=== PATIENT | male | born 1950 | race Caucasian/White ===

== ENCOUNTER 2019-03-30 10:28 | Outpatient (CLI) | payer MEDICARE, OTHER ==
[2019-03-30 15:34] VITALS: BP 143/89
--- NOTE | 2019-03-30 15:34 | SLEEP CARE CONSULTATION ---
Information from patient questionnaire entered by Elaine Fung. I have reviewed and concur with the information entered by Elaine Fung. This document represents the service I personally performed and the decisions made by me, Jon Mena MD, [facility]. History of Present Illness Reason for Visit: New patient Chief Complaint: reports: Unrefreshed sleep, Excessive daytime sleepiness, Fatigue, Frequent awakenings at night Duration of Symptoms: 6 months Usual bedtime: 11 pm Time it takes to fall asleep: 5-10 mins Snores at night: Yes Observed to quit breathing while asleep: No Sleeps alone due to snoring: Yes Number of times waking at night: 3-4 Reasons for waking at night: reports: Bathroom, Other (heartburn) Toss, Turn, or Twitch while sleeping: No Recalls having dreams: Yes Usually gets out of bed at: 4-5 am Feels refreshed in the morning: No Morning headache: No Sleepy or fatigued during the day: Yes Ever fallen asleep while driving: No Takes day naps: No Prior sleep studies: No Additional HPI information: I had the pleasure of seeing Mr. Davenport today regarding the possibility of him having a sleep disorder. As you know, he is a 68 year old gentleman who complains of persistent fatigue and excessive daytime sleepiness for the past 6 months. When he was hospitalized recently, it was noted that his oxygen saturation fell to an abnormally low level at night. The patient tells me that he normally goes to bed around 11 pm, and it takes him approximately 5 - 10 minutes to fall asleep. He has been told that he snores loudly and irregularly at night. He has never been observed to stop breathing in his sleep. His has to sleep in a separate room. He can recall waking up on the average of 3 - 4 times during the night. Most of the time he wakes up because of heart burn. He has awakened occasionally because of his own snoring, choking, and having to gasp for air. There is not a lot of tossing and turning in his sleep. No somniloquy (sleep talking) or somnambulism (sleep walking). Generally he can recall having dreams. In the morning he usually gets up out of the bed around 4 - 8 a.m. not feeling refreshed nor rested. He usually does not have a morning headache. During the day he complains of feeling sleepy and fatigued. His score on [place] Sleepiness Scale is 10 out of 24. He has never fallen asleep while driving nor has had any accident due to sleepiness. He usually does not take naps during the day. Upon falling asleep during the day he denies having vivid dreams. He has never had sleep paralysis, experienced cataplexy or symptoms of restless leg syndrome. He denies having impaired concentration during the day. - Parasomnia Symptoms Ever been unable to move upon waking from sleep: No Ever felt weak in the knees when startled or emotional: No Bothered by creepy, crawly, restless sensations in legs: No Problems with memory or concentration: No Subjective Initial [place] Sleepiness Scale score: 10 Past Medical History Past Medical History: reports: Hypertension, Arthritis, GERD, Other (supraventricular tachycardia, coronary artery disease, [place], stent placement) Social History The patient's occupation is a Retired. Patient is and lives in [place]. Have you smoked in the past 12 months: No Alcohol use: Yes Alcohol amount and frequency: 1 beer a week Family History Family history of sleep disordered breathing: No Allergies and Home Medications Drug allergies reviewed: Yes (NKDA) Home medication list reviewed: Yes (omeprazole, sucralfate, aspirin, metoprolol, a statin) Review of Systems Weight gain over past 5 years: 20 Weight loss over past 5 years: 15 Cardiovascular: reports: high blood pressure, leg or foot swelling Respiratory: reports: shortness of breath Gastrointestinal: reports: heartburn Urinary: denies: incontinence, frequency, urgency, impotence, other Neurological: denies: headaches, seizure, head trauma, disorientation, speech dysfunction, gait or balance problems, fainting or unconsciousness, other Psychiatric: denies: Attention Deficit Hyperactivity, anxiety, depression, mood disorder, claustrophobia, other Ear/Nose/Throat: denies: nasal congestion, sinus problems, nose bleeds, dry mouth/throat, hoarseness, injury to nose, tonsillectomy, wisdom teeth removed, other Endocrine: denies: thyroid disease, history of goiter, sluggishness, too hot or cold, excessive thirst, increased appetite, increased urination, unexplained weakness, other Musculoskeletal: reports: joint pain Immunologic: denies: sneezing, rash, itching, allergies to food or environment, other Physical Exam Vital signs obtained and entered by: Dr. Mena Blood Pressure: 143/89 Cuff size: regular Heart Rate: 59 O2 Saturation: 94 Height: 6 ft Weight: 215 lb Body Mass Index: 29.1 BMI Classification: Overweight Neck circumference: 16 Mood/affect: normal HEENT: No craniofacial malformation Nostrils: patent to airflow Turbinates: normal Septum: midline Mouth and throat: narrow oropharynx Soft palate: long Hard palate: normal Uvula: normal Uvula visualization: 50% Mallampati Class II Tongue: normal in size Tonsils: absent bilaterally Chin and jaw: normal size and position Neck: normal w/o lymphadenopathy or thyromegaly Heart: regular rate and rhythm Lungs: clear bilaterally Abdomen: soft, non-tender Extremities: no edema or clubbing Neurologic: intact, no focal deficits Impression and Plan IMPRESSION: 1. Obstructive Sleep Apnea-Hypopnea Syndrome, as suggested by history of loud and irregular snoring, frequent awakenings during the night, unrefreshed sleep, daytime hypersomnolence, and nocturnal hypoxemia. Narrow oropharynx and obesity are common predisposing factors for obstructive sleep apnea-hypopnea syndrome. 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 Pathophysiology of sleep-disordered breathing was discussed. I recommend proceeding to polysomnography to confirm the diagnosis and to assess severity. If he has significant sleep disordered breathing, a manual CPAP titration study will also be performed to find the optimal treatment pressure. I informed the patient of what the sleep studies involve and after some discussion, he agreed to proceed. Plan: 1. Schedule in-laboratory polysomnography + manual CPAP titration study 2. Avoid long distance driving or when feeling sleepy. 3. Avoid alcohol, sedative and muscle relaxant around bedtime. 4. Attempt to lose weight. 5. Return in 1 to 2 weeks after the study to discuss results and initiate therapy. I spent 100% of this visit face to face with the patient with greater than 50% of this was spent time counseling the patient and coordination of care.
== END 2019-03-30 10:29 | disposition home or self-care (01) ==
LOC: SC 10:28
PROVIDERS: ATTEND Internal Medicine Pulmonary Disease
DX: G47.10 Hypersomnia, unspecified (principal); G47.8 Other sleep disorders; R06.83 Snoring; R09.02 Hypoxemia; E66.3 Overweight; Z68.29 Body mass index [BMI] 29.0-29.9, adult
CPT/HCPCS: 99203; G0463; 99212

== ENCOUNTER 2019-04-24 20:31 | Outpatient (CLI) | payer MEDICARE, OTHER | END 2019-04-24 20:32 | disposition home or self-care (01) | LOC: SC 20:31 | PROVIDERS: ATTEND Internal Medicine Pulmonary Disease | DX: G47.33 Obstructive sleep apnea (adult) (pediatric) (principal); G47.61 Periodic limb movement disorder | CPT/HCPCS: 95810 ==

== ENCOUNTER 2019-05-10 10:56 | Outpatient (CLI) | payer MEDICARE, OTHER ==
--- NOTE | 2019-05-10 12:52 | SLEEP CARE CONSULTATION ---
Information from patient questionnaire entered by Elaine Fung. I have reviewed and concur with the information entered by Elaine Fung. This document represents the service I personally performed and the decisions made by me, Jon Mena MD, [facility]. History of Present Illness Initial [place] Sleepiness Scale score: 10 Additional HPI information: To minimize the risk of exposure, we have the option to conduct your visit with me over the phone. I will be able to discuss your health and offer medical advice. If you agree, we will bill your insurance. Do you agree to this telephone service? YES. HPI: Mr. Davenport was called for follow up of the sleep study he had on 04/24/2019. The polysomnography showed that the patient had slightly reduced sleep efficiency due to a few awakenings after the sleep onset. Except for mild sleep fragmentation, the sleep architecture was normal. Respiratory monitoring showed mild obstructive sleep apnea-hypopnea (AHI = 5.6) associated with frequent arousals, oxyhemoglobin desaturation and mild hypoxia (shaji oxygen saturation of 87%). The patient did not sleep supine during this study (supine AHI = 0.0; non-supine = 5.82). Snore was light to loud in intensity. There was moderate periodic leg movement of sleep not contributing to the sleep fragmentation. Cardiac rhythm was normal sinus rhythm without significant arrhythmia. No abnormal behavior (parasomnia) observed during the night. The patient was informed of these findings. I explained to him the pathophysiology behind obstructive sleep apnea. We then spent quite a bit of time discussing different treatment options. For mild obstructive sleep apnea, surgery and oral appliance are alternatives to nasal CPAP therapy but in moderate or severe cases, nasal CPAP is the most effective and reliable treatment. Weight loss in an obese individual is strongly recommended. After some discussion, he opted to try to lose weight. Allergies and Home Medications Drug allergies reviewed: Yes Home medication list reviewed: Yes Review of Systems Review of systems same as previous: Yes Physical Exam Height: 6 ft Impression and Plan IMPRESSION: 1. Obstructive Sleep Apnea-Hypopnea Syndrome, very mild, associated with mild hypoxemia. Weight loss is not unreasonable as there is no clear evidence that mild obstructive sleep apnea-hypopnea has significant impact of cardiovascular diseases. PLAN: 1. Try to lose weight. 2. Avoid sleeping supine. 3. Return for follow up on as needed basis. Return if he gains weight. I spent 100% of the 15 minute visit telephone encounnter with the patient with greater than 50% of this was spent time counseling the patient and coordination of care. I spent 100% of this visit face to face with the patient with greater than 50% of this was spent time counseling the patient and coordination of care.
== END 2019-05-10 10:57 | disposition home or self-care (01) ==
LOC: SC 10:56
PROVIDERS: ATTEND Internal Medicine Pulmonary Disease
DX: G47.33 Obstructive sleep apnea (adult) (pediatric) (principal); G47.61 Periodic limb movement disorder

== ENCOUNTER 2022-05-13 13:02 | Outpatient (CLI) | payer MEDICARE, OTHER | END 2022-05-13 13:57 | disposition short-term general hospital (02) | LOC: EMS 13:02 | DX: R42 Dizziness and giddiness (principal); R53.1 Weakness; R06.02 Shortness of breath | CPT/HCPCS: A0425; A0429; A0888 ==